=== PATIENT | female | born 1960 | race Caucasian/White ===

== ENCOUNTER → 2018-05-18 09:22 | Outpatient (CLI) | payer BC, SELFPAY ==
--- NOTE | 2018-05-18 09:28 | RAD_ITS ---
STUDY: X-RAY - LUMBAR SPINE REASON FOR EXAM: Female, 57 years old. TECHNIQUE: view(s) of the lumbar spine were obtained. COMPARISON: None FINDINGS: Normal lumbar lordosis. There is no substantial scoliosis. There is a normal alignment of the vertebrae. Normal vertebral bodies and endplates. Normal disc space heights. The soft tissue structures are unremarkable. RAD/L/S Spine Min 4 Views IMPRESSION: Normal x-ray examination of the lumbar spine. Electronically Signed: Maci Velasquez, at 14:39 EST Tel , Service support ,
== END ==
PROVIDERS: Family Provider Nurse Practitioner; PCP Nurse Practitioner; Referring Provider Nurse Practitioner; Visit Provider Nurse Practitioner
DX: M54.5 Low back pain (principal)
CPT/HCPCS: 72110

== ENCOUNTER → 2018-05-26 08:22 | Outpatient (CLI) | payer BC, SELFPAY ==
--- NOTE | 2018-05-26 08:28 | BD_ITS ---
STUDY: DUAL ENERGY X-RAY ABSORPTIOMETRY / DXA REASON FOR EXAM: Female, 57 years old. The patient is postmenopausal. No loss of height. TECHNIQUE: Bone Mineral Density (BMD) measurements of lumbar spine and bilateral hips were obtained. COMPARISON: None. FINDINGS: Lumbar Spine (L1-L4): g/cm2 (1.154) / T-score (-0.1) / Z-score (0.8) Findings are suggestive of normal bone density with a low fracture risk. Left Femur Total: g/cm2 (0.691) / T-score (-2.5) / Z-score (-1.8) Left Femoral Neck: g/cm2 (0.745) / T-score (-2.1) / Z-score (-1.0) Right Femur Total: g/cm2 (0.754) / T-score (-2.0) / Z-score (-1.3) Right Femoral Neck: g/cm2 (0.895) / T-score (-1.0) / Z-score (0.0) BD/DXA BONE DENS W/VERT FX ASMT IMPRESSION: The patient is considered osteopenic as outlined below according to World Boris Organization (WHO) criteria with a high fracture risk. Reference Information: The T-score is the number of standard deviations above or below the standard which is normal for young adults at their peak bone mineral density. The World Health Organization (WHO) interprets the T-scores as follows: Above -1 Normal bone density Between -1 and -2.5 Osteopenia Equal to / or below -2.5 Osteoporosis As a practical clinical guideline, osteopenia may be graded as follows: Mild -1 through -1.5 Moderate -1.6 through -2.0 Severe -2.1 through -2.4 The Z-score is the number of standard deviations above or below age-matched controls. A Z-score of less than -1.5 would be considered abnormal. References: 1. NIH Osteoporosis and Related Bone Diseases http://www.osteo.org 2. International Society for Clinical Densitometry http://www.iscd.org 3. National Osteoporosis Foundation http://www.nof.org Electronically Signed: Walker Ocampo MD at 8:37 EST Tel [phone], Service support ,
== END ==
PROVIDERS: Family Provider Nurse Practitioner; PCP Nurse Practitioner; Visit Provider Nurse Practitioner
DX: Z78.0 Asymptomatic menopausal state (principal)
CPT/HCPCS: 77085

== ENCOUNTER 2018-06-01 16:22 | Outpatient (RCR) | payer BC, SELFPAY ==
--- NOTE | 2018-06-01 17:22 | HP.PTEVAL ---
Patient's Visit Information JAY HATHAWAY is a 57 year old F referred to Physical Therapy by Brooklynn Moulton NP with a diagnosis of L/S radiculopathy. Date of Evaluation: 06/01/18 Physical Therapist: Kip Salvador, DARIUST, OCS, CSCS - Visit Plan Frequency: 1x/Week Duration: 4-6 Weeks Plan: weekly x 4-6 to progress HEP from current ext bias ex to... remodelling flexion, core strength and hip flexor, quad and HS stretching.Progress to HEP. - Subjective Findings: Sciatica. Lifted toilet seat May 14Wednesday morning and felt like back was severely painful without many prior problems. Did have some incidence of pain 15 or so years ago and got injections. Pain is across LB and more in R side. Also into R buttock. 03/02. Was in bed for 2+days unable to move. Went to doctor after Seng and got steroids injections orally whcih helped and toradol injection. Pain killers until this past Wednesday. Walked with a cane for a few days. Getting better . Not much pain this week. To 07/03 dulla glen on R side much of time. Worse as day goes on. Lying flat is the best. Sleeping OK now and no meds needed any more. 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 Back last Wednesday and needed frequent breaks and pain meds. Basic ADLS is oK but slow and trying not to bend. Enjoys walking dog and haulted for a while but able to this week, not able to walk on uneven surfaces yet. Mornings are good. - Pain R LBP Pain Intensity (Out of 10): 2 Pain Intensity Range: 0, 5 Comment: better morning. - Objective Walks normal and trasnfers normal with only slight pain with rolling. Tender to palpation PA pressure mid lumbar spine, slightly in L glut. L/S AROM ext max limited and slight pain, flexion min limited, SB min limited. Very stiff spine but not a lot of pain today. reflexes 0/3 patella and achilles symmetrical. Sensation LE WNL to gross light touch. Strength LE 3+ hips and 4- knees and 4+ ankles. Very little muscle mass in posterior hips and slightly painful with L hip abduction in L LB. - slump and - SLR. - Goals Goal 1:: L/S AROM without pain and only min limited in ext Goal Time Frame: 4-6 Weeks Goal 2:: Sit at work for the day in appropriate position and no increase pain from am to pm Goal Time Frame: 4-6 Weeks Goal 3:: Pt feel 90% back to normal activities including walking dog on uneven surfaces Goal Time Frame: 4-6 Weeks Goal 4:: I HEP to minimize future problems. Goal Time Frame: 4-6 Weeks - Rehabilitation Potential Physical Therapy Diagnosis: L/S radic likely discal. Rehabilitation Potential: Good - Anticipated Interventions Patient/Client Instruction: Educate patient on: Condition, Plan of Care For the Purpose of:: To decrease pain Therapeutic Exercise to Include: Strength training, Flexibilty training, Passive ROM, Active ROM For the Purpose of:: To decrease pain, To increase ROM, To increase tolerance to activity/condition/position, To improve ability of physical actions for home/community/work/leisure Thank you for the opportunity to evaluate your patient. For Medicare and Medicare HMO plans, please review the plan of care and approve it. It will need to be FAXED BACK to us at [phone] for Medicare purposes. For Medicare only, by signing this I certify the plan of care. Please let me know if there are questions or concerns regarding this plan of care. Physician Signature: Date:
--- NOTE | 2018-07-28 11:11 | HP.PT.NRP ---
HP - Discharge Summary (1) - Patient Information JAY HATHAWAY was seen in my office for initial evaluation on 06/01/18. The following Plan of Care was established for this patient: Initial Frequency: 1x/Week Initial Duration: 4-6 Weeks - Anticipated Interventions Patient/Client Instruction: Educate patient on: Condition, Plan of Care For the Purpose of:: To decrease pain Therapeutic Exercise to Include: Strength training, Flexibilty training, Passive ROM, Active ROM For the Purpose of:: To decrease pain, To increase ROM, To increase tolerance to activity/condition/position, To improve ability of physical actions for home/community/work/leisure This patient was last seen in our office 06/01/18. Pertinent comments regarding their Physical therapy will appear below: Pt seen for one visit and POC established. Pt neglected to attend any further visits. at this point, it has been almost two months and I willd discontinue due to nonattendance. At this point I will be discontinuing this patient from physical therapy. I would be happy to see this patient again in the future if found appropriate by the physician. Thank you! Kip Salvador, DPT, OCS, CSCS
== END 2018-06-01 19:00 | disposition home or self-care (01) ==
LOC: PT 16:22
PROVIDERS: Family Provider Nurse Practitioner; PCP Nurse Practitioner; Visit Provider Nurse Practitioner
DX: M54.30 Sciatica, unspecified side (principal); M54.5 Low back pain
CPT/HCPCS: 97110; 97162